=== PATIENT | male | born 1955 | race Caucasian/White ===

== ENCOUNTER → 2016-12-11 | Outpatient (CLI) | payer OTHER ==
[~2016-12-11] MED LIST: AMLO5TAB2 PO; ASPI-650 PO; ATOR40TA78 PO; CLOP75TA PO; DULO30CA2 PO; FENO145T32 PO; LEVO50TA5 PO; METO-93 PO; MORP60TA PO; OXYM10TA PO; PANT40TA5 PO; REGADENOSON 0.4 MG/5 ML SYRINGE ONE; TIZA4TAB PO; TRIA0.2517 PO
== END | disposition home or self-care (01) ==
LOC: CFH 13:05
PROVIDERS: ATTEND Internal Medicine Cardiovascular Disease
DX: R07.9 Chest pain, unspecified (principal); Z95.1 Presence of aortocoronary bypass graft
CPT/HCPCS: 78452; 93017; A9502; J2785